=== PATIENT | male | born 1955 | race Caucasian/White ===

== ENCOUNTER 2019-12-14 10:29 | Emergency (ER) | payer OTHER, MEDICARE ==
[~2019-12-14] VITALS: Ht 185.4 cm; Wt 158.8 kg
[2019-12-14] MEDS ORDERED: ASPI81CH PO (11:16)
[2019-12-14] MEDS ORDERED: Advil Migraine200 MG PO (11:16)
[2019-12-14 11:19] LABS: BASOPHILS ABSOLUTE AUTO 0.03 K/mm3 (0.00-0.23); BASOPHILS PERCENT AUTO 0 % (0-2); EOSINOPHILS ABSOLUTE AUTO 0.15 K/mm3 (0.00-0.68); EOSINOPHILS PERCENT AUTO 2 % (0-6); Hematocrit 46.3 % (37.0-53.0); Hemoglobin 14.8 g/dL (13.5-17.5); IMMATURE GRAN ABSOLUTE AUTO 0.03 K/mm3 (0.00-0.10); IMMATURE GRAN PERCENT AUTO 0 % (0-1); LYMPHOCYTES ABSOLUTE AUTO 1.76 K/mm3 (0.84-5.20); LYMPHOCYTES PERCENT AUTO 25 % (21-46); MONOCYTES ABSOLUTE AUTO 0.54 K/mm3 (0.16-1.47); MONOCYTES PERCENT AUTO 8 % (4-13); Mean Corpuscular HGB 29.7 pg (26.0-34.0); Mean Corpuscular Volume 93 fL (80-100); Mean Platelet Volume 10.4 fL (9.1-12.4); NEUTROPHILS ABSOLUTE AUTO 4.66 K/mm3 (1.96-9.15); NEUTROPHILS PERCENT AUTO 65 % (41-73); Platelet Count 130 K/mm3 (150-400); RDW Coefficient Variation 15.8 % (11.7-14.2); RDW Standard Deviation 53.3 fL (35.1-46.3); Red Blood Cell Count 4.99 M/mm3 (4.30-5.90); White Blood Cell Count 7.17 K/mm3 (4.00-11.30)
[2019-12-14 11:37] LABS: Troponin I <0.015 ng/mL (0.000-0.040)
[2019-12-14 11:38] LABS: Alanine Aminotransfer (ALT/SGP 29 U/L (12-78); Albumin, Blood 3.6 g/dL (3.4-5.0); Albumin/Globulin Ratio 0.8 (0.8-1.8); Alk Phos 182 U/L (50-136); Anion Gap 8 mmol/L (6-16); Aspartate Aminotrans (AST/SGOT 38 U/L (12-37); Bilirubin, Total 1.1 mg/dL (0.1-1.0); Blood Urea Nitrogen 8 mg/dL (8-24); Bun/Creatinine Ratio 13.1 (12.0-20.0); CO2, Blood 22 mmol/L (21-32); Calcium, Blood 8.4 mg/dL (8.5-10.1); Chloride, Blood 112 mmol/L (98-108); Creatinine, Blood 0.61 mg/dL (0.60-1.20); Globulin, Blood 4.5 g/dL (2.2-4.0); Glomerular Filtration Rate >60 (60-); Glucose, Blood 128 mg/dL (70-99); Potassium, Blood 4.2 mmol/L (3.5-5.5); Sodium, Blood 142 mmol/L (136-145); Total Protein, Blood 8.1 g/dL (6.4-8.2)
[2019-12-14 13:59] LABS: Bilirubin, Urine Neg (Neg); Blood, Urine 1+ (Neg); Glucose Qualitative, Urine Neg (Neg); Ketones, Urine Neg (Neg); Leukocyte Esterase, Urine Neg (Neg); Nitrite, Urine Neg (Neg); Protein, Urine Neg (Neg); Urobilinogen, Urine NORM (Normal); pH, Urine 6.5 (5.0-8.0)
[2019-12-14 14:05] LABS: Appearance, Urine Clear (Clear); Color, Urine Pale Yellow (P-Yellow)
[2019-12-14 14:06] LABS: Bacteria Rare /hpf; Squamous Epithelial Cells Not Seen /hpf (Few); White Blood Cells, Urine 0-2 /hpf (0-5)
== END 2019-12-14 16:23 | disposition home or self-care (01) ==
LOC: ER 10:29
PROVIDERS: Physician Assistant
DX: R53.1 Weakness (principal); I48.91 Unspecified atrial fibrillation; Z79.82 Long term (current) use of aspirin
CPT/HCPCS: 80053; 81001; 84484; 85025; 93005; 93010; 99283-25

== ENCOUNTER 2020-04-22 08:48 | Inpatient (IN) | payer OTHER, MEDICARE ==
[~2020-04-22] VITALS: Ht 185.4 cm; Wt 132.4 kg
[~2020-04-22 08:48] MED LIST: ASPI81CH PO; Advil Migraine200 MG PO; Hytrin1 MG PO; Hytrin2 MG PO; MELO7.5 PO; NYSTATIN15 GM TOP
[2020-04-22 09:20] LABS: Calcium, Ionized (POC) 1.12 mmol/L (1.10-1.46); Chloride (POC) 108 mmol/L (98-108); Creatinine (POC) 0.8 mg/dL (0.8-1.3); Glucose (ISTAT POC) 124 mg/dL (70-99); Hemoglobin (POC) 6.1 g/dL (13.5-17.5); Potassium (POC) 4.9 mmol/L (3.5-5.5); Sodium (POC) 142 mmol/L (135-148); Total CO2 (POC) 21 mmol/L (21-32)
[2020-04-22 09:23] LABS: BASOPHILS ABSOLUTE AUTO 0.03 K/mm3 (0.00-0.23); BASOPHILS PERCENT AUTO 0 % (0-2); EOSINOPHILS ABSOLUTE AUTO 0.02 K/mm3 (0.00-0.68); EOSINOPHILS PERCENT AUTO 0 % (0-6); Hematocrit 18.6 % (37.0-53.0); IMMATURE GRAN ABSOLUTE AUTO 0.11 K/mm3 (0.00-0.10); IMMATURE GRAN PERCENT AUTO 1 % (0-1); LYMPHOCYTES ABSOLUTE AUTO 0.59 K/mm3 (0.84-5.20); LYMPHOCYTES PERCENT AUTO 5 % (21-46); MONOCYTES ABSOLUTE AUTO 0.85 K/mm3 (0.16-1.47); MONOCYTES PERCENT AUTO 7 % (4-13); Mean Corpuscular HGB 23.1 pg (26.0-34.0); Mean Corpuscular HGB Conc 27.4 g/dL (31.5-36.5); Mean Corpuscular Volume 84 fL (80-100); Mean Platelet Volume 10.7 fL (9.1-12.4); NEUTROPHILS ABSOLUTE AUTO 10.81 K/mm3 (1.96-9.15); NEUTROPHILS PERCENT AUTO 87 % (41-73); NRBC ABSOLUTE 0.04 K/mm3 (0.00-0.02); NRBC Auto 0.3 /100 WBC (0.0-0.2); Platelet Count 188 K/mm3 (150-400); RDW Standard Deviation 57.7 fL (35.1-46.3); Red Blood Cell Count 2.21 M/mm3 (4.30-5.90); White Blood Cell Count 12.41 K/mm3 (4.00-11.30)
[2020-04-22 09:26] LABS: Hemoglobin 5.1 g/dL (13.5-17.5)
[2020-04-22 09:34] LABS: International Normalized Ratio 1.52; Prothrombin Time Results 15.9 Sec (9.7-11.5)
[2020-04-22 09:35] LABS: Alanine Aminotransfer (ALT/SGP 23 U/L (12-78); Albumin, Blood 2.6 g/dL (3.4-5.0); Albumin/Globulin Ratio 0.8 (0.8-1.8); Alk Phos 74 U/L (50-136); Anion Gap 6 mmol/L (6-16); Aspartate Aminotrans (AST/SGOT 28 U/L (12-37); Bilirubin, Total 1.9 mg/dL (0.1-1.0); Blood Urea Nitrogen 45 mg/dL (8-24); Bun/Creatinine Ratio 61.1 (12.0-20.0); CO2, Blood 25 mmol/L (21-32); Calcium, Blood 7.9 mg/dL (8.5-10.1); Chloride, Blood 113 mmol/L (98-108); Creatinine, Blood 0.74 mg/dL (0.60-1.20); Globulin, Blood 3.2 g/dL (2.2-4.0); Glomerular Filtration Rate >60 (60-); Glucose, Blood 128 mg/dL (70-99); Potassium, Blood 4.9 mmol/L (3.5-5.5); Sodium, Blood 144 mmol/L (136-145); Total Protein, Blood 5.8 g/dL (6.4-8.2)
--- NOTE | 2020-04-22 10:30 | NUR ---
Initial palliative care consult: Joshua is a 65 year old with a history of alcholic cirrohsis and hematemesis. He is seen in the ER this morning at the request of the hospitalist Demario schulte NP. Joshua states he is unsure of whether or not he wants to seek treatment for his hemataemesis. He states he lives with his nephew and reports that his quality of life over the past 5 years or so has been very poor. He is currently receiving a unit of PRBCs and is considering having an EGD done. He reports he has done a lot of thinking about seeking treatment vs. changing to a comfort care approach. Options for treatment vs. comfort care explained to pt. Pt states he understands the likely outcomes of his options and has no questions. During the visit, the ER nurse stated that they would like to hang the 2nd unit of PRBCs that was ordered. Pt told the ER nurse no, and that he would like to be left alone to think about his options and decide whether or not he wants to have the transfusion. Will allow pt some time to think about what decision he would like to make and will plan to visit with Joshua later. ER nurse updated. PC to return.
--- NOTE | 2020-04-22 11:00 | NUR ---
Rec'd a call from PAXTON Hanks for the hospitalist marlen that pt has decided to not seek any further treatment and will be admitted to comfort care. GI saw pt in ER. Returned to ER to talk with Joshua. He voices his request for comfort care and verbalizes that he is aware that if his bleeding restarts that he could bleed to . Explained the comfort care admission and that the focus will be on comfort. If his bleeding does not recur, he would like to go home with hospice services to be with his family. Joshua took a phone call from his brother during the visit to explain to his brother the decision that he has made. PC will follow for comfort care and symptom management.
[2020-04-22] MEDS ORDERED: Norco 5-325 Ta1 EACH PO (13:45)
--- NOTE | 2020-04-22 19:00 | NUR ---
ASSUMED CARE RECEIVED REPORT FROM GILMAR SERRATO. ASSUMED CARE OF PT. PT APPEARS COMFORTABLE AT THIS TIME, NO C/O PAIN OR SIGNS ACUTE DISTRESS NOTED. RESPS EVEN AND UNLABORED. DENIES NEEDS. CALL LIGHT, POSSESSIONS IN REACH. WILL CONTINUE TO MONITOR.
--- NOTE | 2020-04-22 19:00 | NUR ---
ASSUMED CARE RECEIVED REPORT FROM GILMAR SERRATO. ASSUMED CARE OF PT. APPEARS COMFORTABLE AT THIS TIME, NO S/S ACUTE DISTRESS NOTED. DENIES NEEDS. CALL LIGHT, POSSESSIONS IN REACH. WILL CONTINUE TO MONITOR AND ASSESS PT'S COMFORT NEEDED.
--- NOTE | 2020-04-22 19:52 | NUR ---
SHIFT SUMMARY- PT ADMITTED FOR THE PURPOSE OF COMFORT CARE, BLOODY EMESIS AND STOOLS. PT HAD 1 UNIT PRBC'S AND THEN DECLINED ALL OTHER TREATMENT. PT HAS HAD ONE BOUT OF EMESIS AT SHIFT CHANGE CLEAR MUCUS WITH COFFEE GROUNDS IN IT. MEDICATED FOR PAIN ONCE THIS SHIFT. CALLED PALLIATIVE CARE AND REQUERSTED COMFORT CARE MEDICATIONS FOR THE PT.
--- NOTE | 2020-04-22 19:59 | NUR ---
SAWYER PLACED FOR RETENTION AND TO IMPROVE QUALITY OF LIFE FOR THE PT ON COMFORT CARE.
--- NOTE | 2020-04-23 07:00 | NUR ---
ASSUMED CARE OF PT- REPORT COMPLETED WITH NIGHT GILMAR HERRING. PT RECIEVED IV FENTANYL WHICH SEEMED TO BE MORE EFFECTIVE THAN THE ROXANOL FOR THE PT PAIN. PT DENIES ANY NEED FOR PAIN MEDICATION AT THIS TIME. NO FURTHER EMESIS WAS HAD T/O THE NIGHT. PT DID REQUEST NAUSEA MEDICATION ONCE. PER REPORT PT FAMILY CAME IN TO VISIT FOR A LITTLE BIT LAST NIGHT AND THEY PLAN TO RETURN LATER TODAY. PT LAYING IN BED, CALL LIGHT IN REACH, ALERT AND ORIENTED AND CALLS APPROPRIATELY. PT IS ABLE TO MAKE HIS NEEDS KNOWN.
--- NOTE | 2020-04-23 08:09 | NUR ---
SHIFT SUMMARY PT REMAINS COMFORTABLE AT THIS TIME, NO S/S DISTRESS NOTED. FAMILY IN TO SEE PT LAST NIGHT, ASSISTED RN CHARGE WITH BED BATH. PT TOLERATED WELL. PAIN AND NAUSEA MANAGED WITH MEDS PER EMAR. NO EPISODES OF EMESIS. PT SLEPT ON AND OFF. SAWYER CATHETER DRAINING TO GRAVITY, PATENT. PT DENIES NEEDS AT THIS TIME. CALL LIGHT, POSSESSIONS IN REACH, REPORT GIVEN TO GILMAR SERRATO.
--- NOTE | 2020-04-23 08:35 | NUR ---
[facility] assessment Spoke with nursing and rec'd an update. Pt had a black tarry stool last evening, no further emesis at this time. IV Fentayl seems to work well for his pain. He has also rec'd PO roxinol. Will montitor use and effectiveness of fentanyl. May consider a fentanyl patch if this medication works better for Van. Van states he likes to listen to country music. Offered to bring him the I-pad to find some country music to listen to, he declined at this time. He is requesting coffee. No other requests. PC will continue to monitor.
--- NOTE | 2020-04-23 20:28 | NUR ---
SHIFT SUMMARY- PT ALERT AND ORIENTED MEDICATED FOR PAIN NEEDED. PT STATED THE ROXANOL TASTES TERRIBLE BUT IT "REALLY WORKS!" PT JOKES WITH STAFF STATING HE IS TRYING TO KEEP UP THE "LEVITY." PT HAD FAMILY COME TO VISIT TODAY. NO EMESIS OR BLOODY STOOLS THIS SHIFT.
--- NOTE | 2020-04-24 04:01 | NUR ---
SHIFT SUMMARY PT A&O & PLEASANT, NO ACUTE CHANGES THIS SHIFT, MEDICATED PER MAR FOR PAIN, NO OTHER C/O ANY KIND, PT BEDRESTING AT THIS TIME, CALL LIGHT IN REACH, WILL CONT TO MONITOR UNTIL REPORT GIVEN TO DAY RN.
--- NOTE | 2020-04-24 10:30 | NUR ---
Comfort care visit Met with Van in his room this morning. He is awake and "uncomfortable." He reports generalized discomfort in his back. A max is present as he reports he was recently having difficulty with urinating. He states his brother and sister in law are planning to come to visit him today to discuss the possibility of going home with hospice in their care. Pt reports he is aware of what hospice services provide. Notified nursing that pt is having some discomfort. PC will continue to follow for symptom management.
--- NOTE | 2020-04-24 12:17 | NUR ---
HE RECENTLY RECEIVED PAIN MEDICINE AT SHIFT CHANGE. WE HAVE ALSO DISCUSSED FAMILY PHONE NUMBERS AND WILL TRY AGAIN I A LITTLE WHILE.
--- NOTE | 2020-04-24 12:19 | NUR ---
1000 NOTE MEDICATING WITH FENTANYL FOR MOSTLY HIS BACK. HAS ROUNDED. [employer] AUTHORIZATION SPECIALIST HAS BEEN IN. THE PATIENT WAS ABLE TO TALK TO HIS BROTHER AND A COUSIN ON THE PHONE. HE FEELS BETTER AFTER TALKING TO THEM.
--- NOTE | 2020-04-24 12:21 | NUR ---
1200 NOTE HE IS RESTING WITH EYES CLOSED. WILL MONITOR AND TREAT FOR COMFORT.
--- NOTE | 2020-04-24 14:26 | NUR ---
1400 NOTE JUST WOKE UP FROM A NAP. HE WAS SO GLAD TO GET SOME SLEEP. HIS BROTHER IS WITH HIM NOW.
--- NOTE | 2020-04-24 16:53 | NUR ---
1600 N0TE MORE CALM THIS AFTERNOON THAN THIS MORNING. BENADRYL ORDER FOR C/O ITCHING.
--- NOTE | 2020-04-24 18:31 | NUR ---
HIS BROTHER HAS LEFT AND HIS NEPHEW JUST LEFT. HE HAS BEEN TURNED, BACK RUB AND LOTION. HIS PAIN IS CONTROLLED PRETTY WELL WITH FENTANYL AND ROXANOL. HE HAD ITCHING THOUGH AND BENADRYL WAS STARTED. HE HAS MILD ANXIETY. NO ATIVAN GIVEN THIS SHIFT.
--- NOTE | 2020-04-25 04:12 | NUR ---
SHIFT SUMMARY ASSUMED CARE OF PT AT 1900. PT WAS SLEEPING BED UNPON ARRIVAL. PT AWAOKE WITH NEASEA AND WAS GIVEN ZOFRAN. PT ALSO C/O PAIN IN HIS BACK, MEDICATED WITH ROXINAL FOR PAIN. PT C/O ITCHING ON HIS BACK, PT REPOSITIONED AND CREAM APPLIED. CATHETER DRAINING WITH GRAVITY. PT SLEPT T/O THE NIGHT. NO NEW COMPLAINTS. PT BREATHING IS EVEN AND UNLABORED. CALL LIGHT IN REACH, BED IN LOWEST POSTION.
--- NOTE | 2020-04-25 08:02 | NUR ---
HE IS UNRESPONSIVE. RESPIRATIONS WET BUT REGULAR AT 16/MIN. ORAL PHARYNGEAL SUCTION ATTEMPTED BUT HE BIT DOWN. SCOPOLAMINE PATCH INITIATED. HE IS ON HIS BACK WITH HIPS FLOATED AND HOB UP 40 DEFREES. WILL CALL HIS BROTHER JEFF ABOUT HIS CHANGE IN STATUS SINCE EARLY AM.
--- NOTE | 2020-04-25 10:00 | NUR ---
PAL CARE COMFORT CARE VISIT - No family at bedside. RN joined me while rounding. Pt with hob up. He appears to be resting comfortably and without nonverbal indicators of pain or distress. He has wet, gurgling upper airway secretions noted and scopolomine patch in place behind left ear. Pt did not respond to voice or gentle touch. Time spent at bedside. Pt appears imminent in the dying process. RN has updated family of change in status over the last 12-24 hours. RN reports that pt was able to have a phone conversation with his estranged daughter yesterday and that she called back again this am and was updated on current status. Pal care to continue to remain available and visit daily.
--- NOTE | 2020-04-25 10:10 | NUR ---
HE STILL HAS REGULAR WET RESPIRATIONS 16 TO 18 PER MINUTE. THE RATTLE IS ALL IN HIS THROAT. SCOPOLAMINE PATCH WAS STARTED ABOUT 2 HRS AGO. HIS DAUGHTER CALLED IN. I LET HER KNOW THAT I CALLED SIRISHA'S VOICE MAIL AND I TOLD HER TOO THAT HE IS UNRESPONSIVE THIS MORNING. SHE SPOKE WITH HIM YESTERDAY WHEN HE WAS ALERT. PALLIATIVE CARE RN ALSO ROUNDED ON HIM.
--- NOTE | 2020-04-25 12:17 | NUR ---
WILL TURN HIM WITH 2 OR 3 ASSIST NOW. HE IS ON BEDREST. HE REMAINS UNRESPONSIVE SINCE ABOUT 6 AM THIS MORNING. HIS RESPIRATIONS REMAIN REGULAR AND RATTLING. I AGAIN ATTEMPTED TO SUCTION THE BACK OF HIS THROAT BUT HE CLOSED HIS MOUTH ON THE YANKEUR WHEN I GOT NEAR HIS THROAT. DIET CHANGED TO NPO. COMFORT CARE CART IN ROOM FOR VISITORS. HIS BROTHER JEFF WAS HERE FOR ABOUT 2 HRS THIS MORNING AND WANTS TO BE CALLED FOR A CHANGE IN CONDITION. HE MADE A COUPLE OF FAMILY PHONE CALLS. A COUSIN FROM [place] CALLED AND IS COMING TO VISIT. VERY SMALL U.O. IN SAWYER DRAINAGE BAG.
--- NOTE | 2020-04-25 13:05 | NUR ---
RESPIRATIONS 20/MIN AND REGULAR. NO VISITORS AT THIS TIME.
--- NOTE | 2020-04-25 14:24 | NUR ---
HIS RESPIRATIONS ARE 20-22/MIN. HE OPENED HIS L EYE, (HE HAS AN ARTIFICIAL R EYE) AND SAID WORDS IF HE'D BEEN DREAMING. HE WAS RESTLESS AND SAID "A LITTLE" WHEN I ASKED ABOUT PAIN. HE ALSO RAN HIS HAND UP AND DOWN HIS R CHEST AND ABD. LYING LEFT AND HOB ELEVATED.
--- NOTE | 2020-04-25 15:11 | NUR ---
Respirations 20/min AND REGULAR. NO FAMILY AT THIS TIME.
--- NOTE | 2020-04-25 16:37 | NUR ---
HIS BROTHER AND THE ELECTRONIC DIE MAKER ARE AT THE BEDSIDE. BHAVYA IS UNRESPONSIVE. NO OTHER CHANGES.
--- NOTE | 2020-04-25 18:09 | NUR ---
HE REMAINS UNRESPONSIVE AND COMFORTABLE. HE NOW HAS 3 VISITORS IN THE ROOM VISITING AMONGST THEMSELVES. WILL TURN HIM AGAIN SOON WHEN WE HAVE 3 OF US AVAILABLE. ESTEPHANIA Perdomo.OElsi IN [place]. ADELA GIVEN X1 TODAY FOR A SHORT PERIOD OF RESTLESSNESS. SPENT TIME WITH HIS BROTHER.
--- NOTE | 2020-04-25 18:28 | NUR ---
Initial spiritual care note: Pt was non-respopnsive to voice or touch. Breaths uneven. He appears very near end-of-life. I had a lengthy conversation with pt's brother, Zac, who told me he was grateful to have someone to talk to. I listened to stories about Van's life. Zac told me pt had been unhappy most of his life. Zac also stated that pt has spoken about finding life unbearable. Zac responded well to anticipatory bereavement counselor aide and emotional affirmation. Pt and family non-lutheran. I will remain available.
--- NOTE | 2020-04-25 18:29 | NUR ---
HE AROUSED DURING TURNING AND PERICARE. HE HAS MADE ABOUT 60 MLS OF URINE TODAY.
--- NOTE | 2020-04-25 19:53 | NUR ---
PT IS ALERT THIS EVENING. HE ANSWERED ME WHEN I CALLED HIS NAME AND IS COHERENT. PER DAYSHIFT RN REPORT PT WAS SOMNOLENT AND MOSTLY NONRESPONSIVE FOR MOST OF THE DAY. PT REQUESTING WATER AT THIS TIME. WILL NEED TO HAVE DIET ORDER CHANGED FROM NPO WILL FOLLOW UP WITH MD REGARDING PT DIET.
--- NOTE | 2020-04-26 05:07 | NUR ---
SHIFT SUMMARY PT HAS BEEN AWAKE AND COHERENT THIS SHIFT. HE HAS ANSWERED A LOT OF MY QUESTIONS APPROPRIATELY. AT TIMES HE IS CONFUSED AND SPEECH IS NONSENSICAL. PT APPETITIE HAS BEEN GOOD. HE REQUESTED SEVERAL POPSICLES THIS SHIFT AND TOLERATED PO FLUIDS. SAWYER IN PLACE PATENT AND DRAINING WITH DARK URINE. VERY LITTLE OUTPUT. PT MEDICATED FOR PAIN X1 WITH AFFECT. PT HAS BEEN PLESANT WITH CARE. COMFORT ASSESSED T/O SHIFT. BED IN LOWEST POSITION, CALL LIGHT WITHIN REACH.
--- NOTE | 2020-04-26 07:50 | NUR ---
pt req pain meds pain 02/10 upper abd pt also req i help him dial his nephew number pt conf this am pale and dizzy
--- NOTE | 2020-04-26 09:01 | NUR ---
[facility] to [facility] 1100 today will do covid test
[2020-04-26] MEDS ORDERED: ACET325 PO (09:53)
[2020-04-26] MEDS ORDERED: DIPH25 PO (09:54)
[2020-04-26] MEDS ORDERED: ATROPINE SULFATE2 M2 SL (09:54)
[2020-04-26] MEDS ORDERED: LORA2L PO (09:55)
[2020-04-26] MEDS ORDERED: MORP20L SL (09:55)
[2020-04-26] MEDS ORDERED: ONDA4ODT MM (09:55)
[2020-04-26] MEDS ORDERED: TRANSDERM-SCOP1 EAC1 TD (09:56)
--- NOTE | 2020-04-26 10:09 | NUR ---
pt resting talking to himeslf, comfortable [facility] soon for [facility].
--- NOTE | 2020-04-26 10:28 | NUR ---
repositioned max cath 250 ml emptied
--- NOTE | 2020-04-26 12:30 | NUR ---
PT TRANSPORTED VIA [place] HOSPICE
--- NOTE | 2020-04-26 13:06 | NUR ---
RE[facility] CALLED TO [facility]
== END 2020-04-26 12:27 | disposition short-term general hospital (02) | DRG 378 ==
LOC: ER 08:48 → MEDS 08:49
PROVIDERS: Emergency Medicine; ADMIT Hospitalist
PROC: 30233N1 Transfusion of Nonautologous Red Blood Cells into Peripheral Vein, Percutaneous Approach (ICD-10-PCS; principal; 2020-04-22)
DX: K92.0 Hematemesis (principal); D62 Acute posthemorrhagic anemia; R65.10 Systemic inflammatory response syndrome (SIRS) of non-infectious origin without acute organ dysfunction; F11.20 Opioid dependence, uncomplicated; I48.0 Paroxysmal atrial fibrillation; K92.1 Melena; Z20.828 Contact with and (suspected) exposure to other viral communicable diseases; Z51.5 Encounter for palliative care; Z66 Do not resuscitate; R40.2412 Glasgow coma scale score 13-15, at arrival to emergency department; K70.30 Alcoholic cirrhosis of liver without ascites; E66.01 Morbid (severe) obesity due to excess calories; G89.4 Chronic pain syndrome; Z68.38 Body mass index [BMI] 38.0-38.9, adult
CPT/HCPCS: 36415; 36430; 71045; 80047; 80053; 83735; 85014; 85025; 85610; 85730; 86850; 86900; 86901; 86923; 93005; 93010; 96365; 96375; 99285-25; C9113; J0696; J2060; J2354; J2405; J3010; J7030; J7050; P9016; Q0163; U0002